=== PATIENT | female | born 1935 | race Caucasian/White ===

== ENCOUNTER 2017-03-20 12:50 | Emergency (ER) | payer MEDICARE ==
[2017-03-20 13:00] VITALS: BP 119/71
[2017-03-20] MEDS ORDERED: Albuterol/Ipratropium NEB.SOL* Albuterol 2.5 MG/Ipratropium 0.5 MG 3 ML INH ONE (13:19)
--- NOTE | 2017-03-20 14:10 | UC ---
Asthma HPI - HPI Summary HPI Summary: 3 DAYS OF INCREASING SHORTNESS OF BREATH. HAS ASTHMA AND WAS TREATED FOR A FLARE ABOUT A MONTH AGO. DOES NOT HAVE OXYGEN AT HOME. ALBUTEROL NOT REALLY HELPING. NO FEVER. HAS PRODUCTUVE COUGH - YELLOW SPUTUM. - History of Current Complaint Chief Complaint: UCRespiratory Stated Complaint: [id number] BREATHING Time Seen by Provider: 03/20/17 13:56 Hx Obtained From: Patient, Family/Practice Consultant - DAUGHTER Onset/Duration: Gradual Onset, Lasting Days, Still Present Timing: Constant Initial Severity: Moderate Current Severity: Moderate Pain Intensity: 0 Pain Scale Used: 0-10 Numeric Location/Character: Cough (Productive) Aggravating: Exertion Alleviating: Rest Associated Signs and Symptoms: Positive: Shortness of Breath. Negative: Chest Pain - Allergy/Home Medications Allergies/Adverse Reactions: Allergies Allergy/AdvReac Type Severity Reaction Status Date / Time Amoxicillin Allergy Unknown Rash And Verified 06/14/13 16:19 Itching Doxycycline Allergy Unknown Rash And Verified 06/14/13 16:19 Itching Sulfa Drugs Allergy Unknown Rash And Verified 06/14/13 16:19 Itching Home Medications: Home Medications Multiple Vitamins W/ Minerals [Multivitamin Adults 50+] 1 tab PO 03/20/17 [ History] PMH/Surg Hx/FS Hx/Imm Hx Endocrine History: Diabetes, Dyslipidemia Cardiovascular History: Hypertension Respiratory History: Asthma Other History Of: Anticoagulant Therapy - Heparin at hospital - Surgical History Surgical History: Yes Surgery Procedure, Year, and Place: Hysterectomy 1965, appendix removed at same time, hernia [id number], sinus surgeries - Family History Known Family History: Positive: Hypertension - Social History Alcohol Use: None Substance Use Type: None Smoking Status (MU): Never Smoked Tobacco - Immunization History Most Recent Influenza Vaccination: 2012 Most Recent Tetanus Shot: 2013 Most Recent Pneumonia Vaccination: 2008 Review of Systems Constitutional: Fatigue Respiratory: Shortness Of Breath, Cough Cardiovascular: Negative Gastrointestinal: Negative All Other Systems Reviewed And Are Negative: Yes Physical Exam Triage Information Reviewed: Yes Appearance: Well-Appearing, No Pain Distress, Well-Nourished Vital Signs: Initial Vital Signs Temp 98.1 F 03/20/17 12:52 Pulse 97 03/20/17 12:52 Resp 18 03/20/17 12:52 BP 119/71 03/20/17 12:52 Pulse Ox 95 03/20/17 12:52 Vital Signs Reviewed: Yes Eyes: Positive: Conjunctiva Clear ENT: Positive: Hearing grossly normal Neck: Positive: Supple, Nontender, No Lymphadenopathy Respiratory: Positive: No respiratory distress, No accessory muscle use, Decreased breath sounds, Crackles - BILATERAL BASES AND RIGHT MID LUNG, Wheezing - OCCASIONAL Cardiovascular: Positive: Pulses Normal Abdomen Description: Positive: Soft Musculoskeletal: Positive: No Edema Neurological: Positive: Alert Psychological: Positive: Normal Response To Family, Age Appropriate Behavior Skin: Negative: rashes Diagnostics - Radiology CXR Xray Interpretation: Positive (See Comments) - UNDERINFLATED LUNGS, BIBASILAR INFILTRATES. Radiology Interpretation Completed By: Radiologist Asthma Course/Dx - Differential Dx/Diagnosis Provider Diagnoses: BIBASILAR PNEUMONIA Discharge - Discharge Plan Condition: Stable Disposition: HOME Prescriptions: Levofloxacin TAB* [Levaquin 500 Tab*] 500 mg PO DAILY #10 tab predniSONE TAB* [Deltasone TAB*] 50 mg PO DAILY #3 tab Patient Education Materials: Pneumonia (ED) Referrals: Taisha Khan MD [Primary Care Provider] - (FOLLOW-UP IN 4-6 WEEKS FOR RE-EVAL AND REPEAT CHEST XRAY) Additional Instructions: BIBASILAR INFILTRATES SEEN ON XRAY TODAY. WILL TREAT WITH ANTIBIOTICS - TAKE FOR THE FULL 10 DAYS. WILL ALSO GIVE 3 DAYS OF PREDNISONE TO HELP WITH AIRWAY INFLAMMATION. THIS WILL CAUSE YOUR SUGAR TO GO UP. PLEASE BE EXTRA VIGILANT OF YOUR DIET OVER THE NEXT WEEK. ALSO BE AWARE THAT LEVOFLOXACIN CAN MAKE YOU MORE SENSITIVE TO THE GLIPIZIDE INCREASING RISK OF LOW SUGAR. SO AGAIN - BE VIGILANT. GO TO THE ER WITHOUT FAIL IF YOUR BREATHING GETS WORSE OR IF YOU DEVELOP SWEATS , NAUSEA, DIZZINESS OR ANY OTHER CONCERNING SYMPTOMS.
--- NOTE | 2017-03-20 14:13 | RAD ---
INDICATION: Wheezing and shortness of breath. COMPARISON: Comparison is made with a prior study from June 16, 2013. TECHNIQUE: Dual-energy PA and lateral views of the chest were obtained. FINDINGS: The heart appears within normal limits in size. The lungs are underinflated. There are is mild prominence of the interstitial markings and small bibasilar infiltrates. No pleural effusion is seen. IMPRESSION: UNDERINFLATED LUNGS, BIBASILAR INFILTRATES.
== END 2017-03-20 14:39 | disposition home or self-care (01) ==
LOC: UCEAST 12:50
DX: J18.9 Pneumonia, unspecified organism (principal); J45.909 Unspecified asthma, uncomplicated
CPT/HCPCS: 71020; 99212; A9270-GY; G0463

== ENCOUNTER → 2018-01-13 08:48 | Day surgery (SDC) | payer MEDICARE, BC ==
[~2018-01-13 08:48] MED LIST: Acetaminophen TAB* 325 MG PO PRN; Buffered Lidocaine 0.9% SYRIN* 5 ML/SYR SYRINGE INTRADERM ONE; Cyclopentolate 1% OPTH.SOL* 2 ML BTL ONE; Ketorolac 0.5% OPHTH (NF) 0.5 % 5 ML BTL ONE; Lidocaine 1% MPF* 2 ML VIAL ONE; Lidocaine 2% EPI 1:200000 MPF*10-20 ML VIAL ONE; Neomycin/Polymy/Dex OPTH.SUSP* MAXITROL 0.1% 5 ML ONE; Phenylephrine 2.5% OPTH.SOL* 2 ML BTL ONE; Povidone Iodine 5% OPTH* 30 ML BTL ONE; Proparacaine 0.5% OPHTH.SOL* 15 ML BTL ONE; acetaZOLAMIDE TAB* 250 MG ONE
[2018-01-13 12:57] VITALS: BP 155/74
== END | disposition home or self-care (01) ==
LOC: OREAST 08:48
PROVIDERS: ATTEND Specialist
DX: H25.11 Age-related nuclear cataract, right eye (principal); R06.02 Shortness of breath; Z53.09 Procedure and treatment not carried out because of other contraindication
CPT/HCPCS: A9270-GY

== ENCOUNTER 2018-01-13 11:48 | Inpatient (IN) | payer MEDICARE, BC ==
[2018-01-13 12:59] LABS: ABS Basophils 0.1 10^3/ul (0-0.2); ABS Eosinophils 0.2 10^3/ul (0-0.6); ABS Lymphocytes 1.9 10^3/ul (1.0-4.8); ABS Neutrophils 8.9 10^3/ul (1.5-7.7); ABS Nucleated RBC 0 10^3/ul; Hematocrit 30 % (35-47); Hemoglobin 9.6 g/dl (12.0-16.0); Mean Corpuscular HGB Conc 32 g/dl (31-36); Mean Corpuscular Hemoglobin 25 pg (27-31); Mean Corpuscular Volume 77 fL (80-97); Mean Platelet Volume 7.1 um3 (7.4-10.4); Nucleated Red Blood Cells % 0; Platelet Count 340 10^3/ul (150-450); Red Blood Count 3.88 10^6/ul (4.0-5.4); Red Cell Distribution Width 18 % (10.5-15); White Blood Count 12.2 10^3/ul (3.5-10.8)
[2018-01-13 13:12] LABS: INR 1.67 (0.77-1.02)
[2018-01-13 13:19] LABS: EGFR Non-African American 55.5 (>60)
--- NOTE | 2018-01-13 13:47 | RAD ---
INDICATION: Low oxygen saturation. COMPARISON: Comparison is made with a prior study from March 20, 2017. TECHNIQUE: Dual-energy PA and lateral views of the chest were obtained. FINDINGS: The heart is within normal limits in size. Mediastinal and hilar contours appear within normal limits. The lungs are underinflated. There are small infiltrates at both lung bases and a trace right pleural effusion. IMPRESSION: SMALL BIBASILAR INFILTRATES AND TRACE RIGHT PLEURAL EFFUSION.
[2018-01-13] MEDS ORDERED: Levofloxacin 750 MG IVPREMIX(* 750 MG/150 ML BAG IVPB ONE (14:29)
[2018-01-13] MEDS ORDERED: Acetaminophen TAB* 325 MG PO PRN (16:32)
[2018-01-13] MEDS ORDERED: Magnesium Hydroxide LIQ* 30 ML UDC PO PRN (16:32)
[2018-01-13] MEDS ORDERED: Albuterol 2.5 MG/3 ML NEB.SOL* (0.083%) INH PRN (16:32)
--- NOTE | 2018-01-13 18:09 | ED ---
Emory Roche Angela, scribed for Jay Real MD on 01/13/18 at 1230 . Shortness of Breath - HPI Summary HPI Summary: This pt is a 82 y/o female presenting to [facility] via EMS c/o SOB. Pt was scheduled to have cataract surgery today and was noted to be saturating in the upper 80s. Pt states the surgical associates dilated her right eye. Per family member, pt battles with pneumonia constantly. Pt was recently on antibiotics for pneumonia and upon discharge her O2 sat was 99%. After finishing antibiotics, pt's saturation was in the 90's, which is the baseline for the pt. Pt is currently saturating at 93% on room air. PMHx includes CHF, chronic lung disease, diabetes, HTN. Pt is currently on metformin and Lasix. She denies hx of COPD. - History of Current Complaint Chief Complaint: EDShortnessOfBreath Time Seen by Provider: 01/13/18 12:15 Hx Obtained From: Patient Onset/Duration: Lasting Days, Still Present Timing: Constant Current Severity: Mild Dyspnea At: Rest Aggrevating Factors: Nothing Alleviating Factors: Nothing Associated Signs & Symptoms: Cough (Nonproductive), Edema - Allergy/Home Medications Allergies/Adverse Reactions: Allergies Allergy/AdvReac Type Severity Reaction Status Date / Time amoxicillin Allergy Rash And Verified 01/13/18 09:04 Itching doxycycline Allergy Rash And Verified 01/13/18 09:04 Itching latex Allergy itch Verified 01/13/18 09:04 Sulfa (Sulfonamide Allergy Rash And Verified 01/13/18 09:04 Antibiotics) Itching Home Medications: Home Medications Albuterol 2.5MG/3ML (0.083%)* [Ventolin 2.5 MG/3 ML NEB.SAMY*] 2.5 mg INH Q8HR [History Confirmed 01/13/18] Calcium Carbonate/Vitamin D3 [Calcium 500 + Vit D Caplet] 1 tab PO BID 01/13/18 [History Confirmed 01/13/18] Levothyroxine TAB* [Synthroid TAB*] 25 mcg PO QAM 01/13/18 [History Confirmed ] Losartan TAB* [Cozaar TAB*] 100 mg PO DAILY 01/13/18 [History Confirmed 01/13/18 ] Magnesium Oxide TAB* [MagOx 400 TAB*] 800 mg PO DAILY 01/13/18 [History Confirmed 01/13/18] Meclizine TAB* [Antivert 12.5 TAB*] 25 mg PO TID PRN 01/13/18 [History Confirmed 01/13/18] Metoprolol Succinate XL TAB* [Toprol XL TAB*] 50 mg PO DAILY 01/13/18 [History Confirmed 01/13/18] Multivitamins/Minerals TAB* [Theragran/minerals TAB*] 1 tab PO DAILY 01/13/18 [ History Confirmed 01/13/18] Torsemide TAB* [Demadex*] 20 mg PO DAILY 01/13/18 [History Confirmed 01/13/18] Vitamin E CAP* 400 unit PO DAILY 01/13/18 [History Confirmed 01/13/18] metFORMIN* [Glucophage 1000 MG TAB *] 1,000 mg PO BID 01/13/18 [History Confirmed 01/13/18] PMH/Surg Hx/FS Hx/Imm Hx Endocrine/Hematology History: Reports: Hx Anticoagulant Therapy - Heparin at hospital, Hx Diabetes - type 2, Hx Anemia - chronic anemia Denies: Hx Blood Disorders, Hx Blood Transfusions, Hx Systemic Lupus Erythematosus, Hx Sickle Cell Disease, Hx Thyroid Disease, Hx Unexplained Bleeding Cardiovascular History: Reports: Hx Hypercholesterolemia, Hx Hypertension - on meds, Hx Syncope - vertigo, Other Cardiovascular Problems/Disorders - a fib, on elaquis Denies: Hx Aneurysm, Hx Angina, Hx Angioplasty, Hx Auto Implanted Cardiovert Defib, Hx Cardiac Arrest, Hx Cardiomegaly, Hx Congenital Heart Disease, Hx Congestive Heart Failure, Hx Coronary Artery Disease, Hx Deep Vein Thrombosis, Hx Embolism, Hx Hypotension, Hx Pacemaker/ICD, Hx Peripheral Vascular Disease, Hx Rheumatic Fever Respiratory History: Reports: Hx Asthma, Hx Pneumonia, Hx Seasonal Allergies, Other Respiratory Problems/Disorders - pneumonia 20 yrs ago, was on vent, hx of pneumonia at other times as well Denies: Hx Chronic Bronchitis, Hx Chronic Obstructive Pulmonary Disease (COPD ), Hx Cystic Fibrosis, Hx Lung Cancer, Hx Pleural Effusion, Hx Pulmonary Edema, Hx Pulmonary Embolism, Hx Sleep Apnea GI History: Reports: Hx Diverticulosis, Hx Gastroesophageal Reflux Disease Denies: Hx Cirrhosis, Hx Crohn's Disease, Hx Gall Bladder Disease, Hx Gastrointestinal Bleed, Hx Obstructive Bowel, Hx Ileostomy, Hx Ulcer, Other GI Disorders History: Reports: Other Problems/Disorders - Hx persistent bladder infections, on meds Denies: Hx Acute Renal Failure, Hx Chronic Renal Failure, Hx Dialysis, Hx Kidney Infection, Hx Kidney Stones Musculoskeletal History: Denies: Hx Arthritis, Hx Back Problems, Hx Bursitis, Hx Fibromyalgia, Hx Gout , Hx Scoliosis, Hx Tendonitis, Other Musculoskeletal History Sensory History: Reports: Hx Cataracts - faby, Hx Contacts or Glasses - glasses, Hx Hearing Aid Denies: Hx Eye Injury, Hx Eye Prosthesis, Hx Glaucoma, Hx Legally Blind, Hx Macular Degeneration, Hx Deafness, Hx Hearing Problem Opthamlomology History: Reports: Hx Cataracts - faby, Hx Contacts or Glasses - glasses Denies: Hx Eye Injury, Hx Eye Prosthesis, Hx Glaucoma, Hx Legally Blind, Hx Macular Degeneration Neurological History: Denies: Other Neuro Impairments/Disorders Psychiatric History: Denies: Hx Anxiety, Hx Attention Deficit Hyperactivity Disorder, Hx Eating Disorder, Hx Depression, Hx Panic Disorder, Hx Post Traumatic Stress Disorder, Hx Inpatient Treatment, Hx Schizophrenia, Hx Bipolar Disorder, Hx Suicide Attempt, Hx of Violent Episodes Against Others, Hx Substance Abuse - Surgical History Surgery Procedure, Year, and Place: Hysterectomy 1965, appendix removed at same time,. hernia [id number],. sinus surgeries, Hx Anesthesia Reactions: No Infectious Disease History: No Infectious Disease History: Denies: Hx Hepatitis, Hx Tuberculosis, Traveled Outside the [place] in Last 30 Days - Family History Known Family History: Positive: Hypertension - Social History Alcohol Use: None Substance Use Type: Reports: None Smoking Status (MU): Never Smoked Tobacco Review of Systems Negative: Fever, Chills Negative: Chest Pain Positive: Shortness Of Breath, Cough - chronic Skin: Negative Neurological: Negative All Other Systems Reviewed And Are Negative: Yes Physical Exam - Summary Physical Exam Summary: Appearance: Well appearing, no pain distress Skin: warm, dry, reflects adequate perfusion Head/face: normal Eyes: EOMI. Right eye is pharmacologically dilated. ENT: normal Neck: supple, non-tender. No JVD. Respiratory: crackles in the right base. Expiratory wheeze with force expiration. Respirations are shallow and a little rampant. Cardiovascular: RRR, pulses symmetrical. No murmur. Abdomen: non-tender, soft Bowel: present Musculoskeletal: normal, strength/ROM intact Neuro: normal, sensory motor intact, A&Ox3 Triage Information Reviewed: Yes Vital Signs On Initial Exam: Initial Vitals Temp Pulse Resp BP Pulse Ox 99.4 F 88 19 161/83 90 01/13/18 12:04 01/13/18 12:04 01/13/18 12:04 01/13/18 12:04 01/13/18 12:04 Vital Signs Reviewed: Yes Diagnostics - Vital Signs Vital Signs Temp Pulse Resp BP Pulse Ox 01/13/18 12:04 99.4 F 88 19 161/83 90 - Laboratory Lab Results: Lab Results 01/13/18 01/13/18 01/13/18 Range/Units 12:48 12:48 12:48 WBC 12.2 H (3.5-10.8) 10^3/ul RBC 3.88 L (4.0-5.4) 10^6/ul Hgb 9.6 L (12.0-16.0) g/dl Hct 30 L (35-47) % MCV 77 L (80-97) fL MCH 25 L (27-31) pg MCHC 32 (31-36) g/dl RDW 18 H (10.5-15) % Plt Count 340 (150-450) 10^3/ul MPV 7.1 L (7.4-10.4) um3 Neut % (Auto) 72.8 (38-83) % Lymph % (Auto) 16.0 L (25-47) % [place] % (Auto) 8.3 H (0-7) % Eos % (Auto) 2.0 (0-6) % Baso % (Auto) 0.9 (0-2) % Absolute Neuts (auto) 8.9 H (1.5-7.7) 10^3/ul Absolute Lymphs (auto) 1.9 (1.0-4.8) 10^3/ul Absolute Monos (auto) 1.0 H (0-0.8) 10^3/ul Absolute Eos (auto) 0.2 (0-0.6) 10^3/ul Absolute Basos (auto) 0.1 (0-0.2) 10^3/ul Absolute Nucleated RBC 0 10^3/ul Nucleated RBC % 0 INR (Anticoag Therapy) 1.67 H (0.77-1.02) ABG pH (7.35-7.45) ABG pCO2 (35-45) mmHg ABG pO2 (80-100) mmHg ABG HCO3 (19-31) mmol/L ABG O2 Saturation (95-98) % ABG Base Excess (-2.0-2.0) Sodium 136 L (139-145) mmol/L Potassium 3.7 (3.5-5.0) mmol/L Chloride 101 (101-111) mmol/L Carbon Dioxide 25 (22-32) mmol/L Anion Gap 10 (2-11) mmol/L BUN 22 (6-24) mg/dL Creatinine 0.96 H (0.51-0.95) mg/dL Est GFR ( Amer) 71.4 (>60) Est GFR (Non-Af Amer) 55.5 (>60) BUN/Creatinine Ratio 22.9 H (8-20) Glucose 113 H (70-100) mg/dL Lactic Acid (0.5-2.0) mmol/L Calcium 9.3 (8.6-10.3) mg/dL Total Bilirubin 0.60 (0.2-1.0) mg/dL AST 9 L (13-39) U/L ALT 10 (7-52) U/L Alkaline Phosphatase 45 (34-104) U/L Troponin I 0.01 (<0.04) ng/mL B-Natriuretic Peptide ( - 100) pg/mL Total Protein 7.3 (6.4-8.9) g/dL Albumin 3.4 (3.2-5.2) g/dL Globulin 3.9 (2-4) g/dL Albumin/Globulin Ratio 0.9 L (1-3) Procalcitonin (<0.6) ng/mL 01/13/18 01/13/18 01/13/18 Range/Units 12:48 12:48 12:48 WBC (3.5-10.8) 10^3/ul RBC (4.0-5.4) 10^6/ul Hgb (12.0-16.0) g/dl Hct (35-47) % MCV (80-97) fL MCH (27-31) pg MCHC (31-36) g/dl RDW (10.5-15) % Plt Count (150-450) 10^3/ul MPV (7.4-10.4) um3 Neut % (Auto) (38-83) % Lymph % (Auto) (25-47) % [place] % (Auto) (0-7) % Eos % (Auto) (0-6) % Baso % (Auto) (0-2) % Absolute Neuts (auto) (1.5-7.7) 10^3/ul Absolute Lymphs (auto) (1.0-4.8) 10^3/ul Absolute Monos (auto) (0-0.8) 10^3/ul Absolute Eos (auto) (0-0.6) 10^3/ul Absolute Basos (auto) (0-0.2) 10^3/ul Absolute Nucleated RBC 10^3/ul Nucleated RBC % INR (Anticoag Therapy) (0.77-1.02) ABG pH (7.35-7.45) ABG pCO2 (35-45) mmHg ABG pO2 (80-100) mmHg ABG HCO3 (19-31) mmol/L ABG O2 Saturation (95-98) % ABG Base Excess (-2.0-2.0) Sodium (139-145) mmol/L Potassium (3.5-5.0) mmol/L Chloride (101-111) mmol/L Carbon Dioxide (22-32) mmol/L Anion Gap (2-11) mmol/L BUN (6-24) mg/dL Creatinine (0.51-0.95) mg/dL Est GFR ( Amer) (>60) Est GFR (Non-Af Amer) (>60) BUN/Creatinine Ratio (8-20) Glucose (70-100) mg/dL Lactic Acid 1.1 (0.5-2.0) mmol/L Calcium (8.6-10.3) mg/dL Total Bilirubin (0.2-1.0) mg/dL AST (13-39) U/L ALT (7-52) U/L Alkaline Phosphatase (34-104) U/L Troponin I (<0.04) ng/mL B-Natriuretic Peptide 280 H ( - 100) pg/mL Total Protein (6.4-8.9) g/dL Albumin (3.2-5.2) g/dL Globulin (2-4) g/dL Albumin/Globulin Ratio (1-3) Procalcitonin 0.1 (<0.6) ng/mL 01/13/18 Range/Units 13:00 WBC (3.5-10.8) 10^3/ul RBC (4.0-5.4) 10^6/ul Hgb (12.0-16.0) g/dl Hct (35-47) % MCV (80-97) fL MCH (27-31) pg MCHC (31-36) g/dl RDW (10.5-15) % Plt Count (150-450) 10^3/ul MPV (7.4-10.4) um3 Neut % (Auto) (38-83) % Lymph % (Auto) (25-47) % [place] % (Auto) (0-7) % Eos % (Auto) (0-6) % Baso % (Auto) (0-2) % Absolute Neuts (auto) (1.5-7.7) 10^3/ul Absolute Lymphs (auto) (1.0-4.8) 10^3/ul Absolute Monos (auto) (0-0.8) 10^3/ul Absolute Eos (auto) (0-0.6) 10^3/ul Absolute Basos (auto) (0-0.2) 10^3/ul Absolute Nucleated RBC 10^3/ul Nucleated RBC % INR (Anticoag Therapy) (0.77-1.02) ABG pH 7.48 H (7.35-7.45) ABG pCO2 32 L (35-45) mmHg ABG pO2 61 L (80-100) mmHg ABG HCO3 25.3 (19-31) mmol/L ABG O2 Saturation 95.2 (95-98) % ABG Base Excess 0.6 (-2.0-2.0) Sodium (139-145) mmol/L Potassium (3.5-5.0) mmol/L Chloride (101-111) mmol/L Carbon Dioxide (22-32) mmol/L Anion Gap (2-11) mmol/L BUN (6-24) mg/dL Creatinine (0.51-0.95) mg/dL Est GFR ( Amer) (>60) Est GFR (Non-Af Amer) (>60) BUN/Creatinine Ratio (8-20) Glucose (70-100) mg/dL Lactic Acid (0.5-2.0) mmol/L Calcium (8.6-10.3) mg/dL Total Bilirubin (0.2-1.0) mg/dL AST (13-39) U/L ALT (7-52) U/L Alkaline Phosphatase (34-104) U/L Troponin I (<0.04) ng/mL B-Natriuretic Peptide ( - 100) pg/mL Total Protein (6.4-8.9) g/dL Albumin (3.2-5.2) g/dL Globulin (2-4) g/dL Albumin/Globulin Ratio (1-3) Procalcitonin (<0.6) ng/mL Result Diagrams: 01/13/18 12:48 01/13/18 12:48 Lab Statement: Any lab studies that have been ordered have been reviewed, and results considered in the medical decision making process. - Radiology Chest XR Xray Interpretation: Positive (See Comments) - IMPRESSION: Small bibasilar infiltrates and trace right pleural effusion. Dr. Real has reviewed this radiology report. Radiology Interpretation Completed By: Radiologist - EKG 12:19 Cardiac Rate: NL - at 78 bpm EKG Rhythm: Sinus Rhythm ST Segment: Normal EKG Interpretation: Normal axis. Normal intervals. Re-Evaluation - Re-Evaluation First Eval Re-Evaluation Time: 14:00 Comment: I reviewed the lab and XR results with the pt. Second Eval Re-Evaluation Time: 14:28 Comment: I discussed the plan to admit with the pt and family. Course/Dx - Course Course Of Treatment: Patient was set to be cleared for surgery today was found to be hypoxic in the preop setting. She had chronic cough and has been treated with several rounds of antibiotics. Today she has no fever and has slight elevation of white blood cell count. There is evidence of possible basilar infiltrate. We have discussed placing her on home oxygen in discharging which is the patient's request. However, social work states this necessitates further testing that would require admission. Her primary care physician was also contacted and would like the patient to be admitted to further workup this hypoxia. Hospitalist was contacted and evaluated the patient the ER for admission. - Diagnoses Differential Diagnosis/HQI/PQRI: Positive: CHF, COPD Exacerbation, Pneumonia, Pneumothorax, Pulmonary Edema Provider Diagnoses: Chronic anemia, Pleural effusion, Bilateral pneumonia, Hypoxia - Physician Notifications Discussed Care of Patient With: Jalen Noriega Time Discussed With Above Provider: 14:30 Instructed by Provider To: Other - I discussed pt care with Dr. Noriega, hospitalist, who has agreed to admit the pt. Discharge - Sign-Out/Discharge Documenting (check all that apply): Discharge/Admit/Transfer - [place] [facility] [place] Plan Condition: Fair Disposition: ADMITTED TO [facility] - Billing Disposition and Condition Condition: FAIR [place] [place] The documentation as recorded by the Emory aaron Angela accurately reflects the service I personally performed and the decisions made by , Jay Real MD.
[2018-01-13] MEDS: CMCS: Solifenacin(NF) 5 MG TAB PO SCH (19:13)
[2018-01-13] MEDS: Azithromycin IV(*) 500 MG in NS 0.9% 250 ML* 250 ML IVPB SCH (19:13)
[2018-01-13] MEDS: Mometasone/Formoter 200/5 MDI INH SCH (20:56)
[2018-01-13] MEDS: Apixaban* 5 MG TAB PO SCH (21:31)
[2018-01-13] MEDS: Atorvastatin* 10 MG TAB PO SCH (21:31)
[2018-01-13] MEDS: glipiZIDE TAB.XL* 2.5 MG PO SCH (21:31)
[2018-01-13] MEDS: cefTRIAXone(*) 1 GM in NS 0.9% 50 ML* 50 ML IVPB SCH (21:47)
--- NOTE | 2018-01-13 23:29 | HP ---
CC: Dr. Taisha Khan * HISTORY AND PHYSICAL: DATE OF ADMISSION: 01/13/18 PROVIDER: Darya Moe NP PRIMARY CARE PROVIDER: Dr. Taisha Khan. ATTENDING PHYSICIAN WHILE IN THE HOSPITAL: Dr. Jalen Noriega * (dictated by Darya Moe NP). CHIEF COMPLAINT: 1. Shortness of breath. 2. Low O2 saturation. HISTORY OF PRESENT ILLNESS: Ms. Najera is an 82-year-old female, who carries a past medical history for diabetes, hypertension, asthma, GERD, recurrent pneumonia, and atrial fibrillation. The patient presented for outpatient cataract surgery today and during the preoperative period, she was noted to have O2 saturations at 80%. Given this finding, her cataract surgery was canceled and she was sent to the emergency room for further evaluation of her hypoxia. The patient denies any recent sick contacts. Denies any nausea or vomiting. Denies any fever or chills. She reports that her shortness of breath feels at baseline as she reports that she is chronically short of breath. She reports that when she gets short of breath, she sits down at home until it subsides and has been this way for years. She also reports that she was most recently diagnosed with pneumonia 3 weeks ago and was started on Levaquin. She took Levaquin 500 mg for 10 days and completed that treatment approximately 2 weeks ago. She denies any other symptoms. She denies any chest pain. She denies any abdominal pain or dysuria. She denies any loss of consciousness. No fevers. No weakness. Due to her hypoxia, we were asked by the emergency room physicians to evaluate her for admission to the hospital. While in the emergency room, she had routine lab work drawn. Her white count was 12.2. She did have an ABG in the emergency room; pH was 7.48, PCO2 was 32, PO2 was 61, O2 saturation was 95%. She did have a chest x-ray completed in the emergency room, which showed small bibasilar infiltrates and a trace right pleural effusion. Given these findings, we were asked to evaluate her for admission. PAST MEDICAL HISTORY: Significant for: 1. Diabetes. 2. Hypertension. 3. Asthma. 4. GERD. 5. Recurrent pneumonia with recent treatment approximately 3 weeks ago. 6. Hysterectomy. 7. Atrial fibrillation. PAST SURGICAL HISTORY: 1. Hysterectomy. 2. Appendectomy. 3. Hernia repair. HOME MEDICATIONS: Include: 1. Albuterol nebulizer every 8 hours as needed for shortness of breath. 2. Eliquis 1 tablet 5 mg p.o. b.i.d. 3. Atorvastatin 10 mg p.o. daily. 4. Calcium 500 plus D one tablet twice daily. 5. Zyrtec 10 mg p.o. daily. 6. Cranberry p.o. 1 tablet twice daily. 7. Multivitamin 1 tablet p.o. daily. 8. Flonase 2 sprays in nose daily. 9. Advair Diskus 500/50 one inhalation twice daily. 10. Glipizide 2.5 mg 1 tablet twice daily. 11. Levothyroxine 25 mcg 1 tablet daily. 12. Losartan 100 mg 1 tablet p.o. daily. 13. Magnesium oxide 400 one tablet p.o. daily. 14. Meclizine 25 mg 1 tablet 3 times a day as needed for dizziness or vertigo. 15. Metformin 1000 mg 1 tablet twice daily. 16. Toprol 50 mg 1 tablet p.o. daily. 17. Vitamin E one tablet daily. 18. [place]-3 one tablet twice daily. 19. VESIcare 10 mg 1 tablet p.o. daily. 20. Torsemide 20 mg 1 tablet p.o. daily. 21. Accolate 20 mg take 1 tablet twice daily. ALLERGIES TO MEDICINE: She is allergic to AMOXICILLIN, CODEINE, DOXYCYCLINE, LATEX, and SULFA. FAMILY HISTORY: Mother had a history of angina. Brother with history of [place]. No reported diabetes or cancer. Mother with uterine cancer. SOCIAL HISTORY: The patient denies any tobacco, alcohol, or illicit drug use. She is and lives with her . Surrogate decision maker in the event she is unable to make her own decisions is her , Vince Najera. His phone number is [phone]. The patient wishes to be a do not resuscitate. REVIEW OF SYSTEMS: There was no documented fever. There has been no significant weight change. There was no double vision. There has been no rhinorrhea. There has been no discharge. No sore throat. She denies any chest pain. She denies any nocturnal dyspnea or orthopnea. The patient denies any abdominal pain. Denies any nausea or vomiting. No urinary frequency or urgency. She denies any seizures. Denies loss of consciousness. Denies any pruritus or skin ulcerations. She denies any dysphagia. She does report a chronic cough that is productive of white sputum. She does also report that she is chronically short of breath and that when she becomes short of breath, she sits down until the shortness of breath subsides and then she resumes her activities. She reports that this has been chronic for her for many years. PHYSICAL EXAMINATION GENERAL: At this time, Ms. Najera is an 82-year-old female. She appears in no acute distress, resting on the stretcher in the emergency room. VITAL SIGNS: Are as follows: Blood pressure 124/83, heart rate is 82, respirations are 20, O2 saturation is between 90% to 92% on 2 L. HEENT: Head is atraumatic, normocephalic. Eyes: EOMs are intact. Sclerae anicteric and not pale. Oral mucosa appears to be dry. NECK: Supple. LUNGS: With scattered rhonchi throughout bilaterally. There are some expiratory wheezes. There are no rales. CARDIAC: S1, S2. Regular rate and rhythm. There are no murmurs, rubs, or gallops appreciated. ABDOMEN: Soft, flat, and nontender. Bowel sounds are active x4. EXTREMITIES: Pulses are +2 throughout. She is able to move all 4 extremities with 5/5 strength. NEUROLOGIC: She is alert and oriented x3. Speech is clear. There are no focal deficits. SKIN: Intact. DIAGNOSTIC STUDIES/LAB DATA: WBCs were 12.2, hemoglobin 9.6, hematocrit was 30 , platelet count was 340. INR was 1.67. ABG: pH was 7.48, PCO2 was 32, PO2 was 61, HCO3 was 25, O2 saturation was 95%. Sodium was 136, potassium 3.7, chloride 101, carbon dioxide was 25, anion gap was 10, BUN was 22, creatinine 0.96, glucose was 113, lactic acid was 1.1, calcium 9.3. ASTs were 9, ALTs were 10. Troponin was 0.01. BNP was 280. Procalcitonin was 0.1. Chest x-ray, radiologist's impression: Small bibasilar infiltrates and trace right pleural effusion. Electrocardiogram shows sinus rhythm at a rate of 88. ASSESSMENT AND PLAN: Ms. Najera is an 82-year-old female patient that presented to the emergency room today after in the preoperative period for her cataract surgery was found to be hypoxic with O2 saturations in the mid 80s. The patient was sent here for further evaluation. She will be admitted under observation for: 1. Shortness of breath. I suspect this could be related to pneumonia. She was recently treated for pneumonia approximately 3 weeks ago with a 10-day course of Levaquin 500 mg. Her chest x-ray during this admission shows bibasilar infiltrates. I suspect that her pneumonia could be unresolved. I will place her on ceftriaxone 1 g q.24 hours and azithromycin 500 mg daily. We will get a walking O2 saturation on her as well. 2. Asthma. I suspect that her asthma could also be underlying, contributing to her shortness of breath. We will continue her on her home inhalers, albuterol and Advair Diskus. We will also continue her on Zyrtec. 3. Atrial fibrillation. We will continue her on her Eliquis, Toprol 50 as well. 4. Hypertension. We will continue her on losartan as well as the metoprolol. 5. Hyperlipidemia. We will continue her on atorvastatin 10 mg daily. 6. Diabetes. We will continue her on metformin 1000 mg p.o. twice daily and glipizide 2.5 mg 1 tablet twice daily. 7. Elevated BNP. She did have an elevated BNP at the level of 280. We will continue her on her torsemide during her hospitalization at 20 mg p.o. daily. 8. FEN. She will placed on a heart-healthy diet, decaf okay. 9. Code status. She is a DNR. 10. DVT prophylaxis. We will continue her on her Eliquis. 11. Disposition. She will be placed inpatient. TIME SPENT: On this admission was approximately 60 minutes, greater than half that time was spent [id number] with the patient obtaining history and physical , the other half the time was spent going over the plan of care and implementing that plan of care. I have discussed this with my attending, Dr. Jalen Noriega, and he is in agreement with my plan. DARYA MOE, LINK KNITTING MACHINE OPERATOR [id number]/[facility] #: [id number] [place]
[2018-01-14] MEDS ORDERED: Benzonatate CAP* 100 MG PO PRN (03:02)
[2018-01-14] MEDS: Levothyroxine TAB* 25 MCG TAB PO SCH (05:58)
[2018-01-14 06:13] LABS: ABS Basophils 0.1 10^3/ul (0-0.2); ABS Eosinophils 0.4 10^3/ul (0-0.6); ABS Lymphocytes 1.8 10^3/ul (1.0-4.8); ABS Nucleated RBC 0 10^3/ul; Eosinophil % 3.9 % (0-6); Hematocrit 28 % (35-47); Hemoglobin 9.1 g/dl (12.0-16.0); Lymphocyte % 19.6 % (25-47); Mean Corpuscular HGB Conc 33 g/dl (31-36); Mean Corpuscular Hemoglobin 25 pg (27-31); Mean Corpuscular Volume 77 fL (80-97); Mean Platelet Volume 7.4 um3 (7.4-10.4); Nucleated Red Blood Cells % 0; Platelet Count 304 10^3/ul (150-450); Red Blood Count 3.59 10^6/ul (4.0-5.4); Red Cell Distribution Width 18 % (10.5-15); White Blood Count 9.3 10^3/ul (3.5-10.8)
[2018-01-14 06:33] LABS: EGFR Non-African American 57.6 (>60)
[2018-01-14] MEDS: Magnesium Oxide TAB* 400 MG PO SCH (07:27)
[2018-01-14] MEDS: Apixaban* 5 MG TAB PO SCH ×2 (07:27→21:30)
[2018-01-14] MEDS: Multivitamins/Minerals TAB PO SCH (07:28)
[2018-01-14] MEDS: Atorvastatin* 10 MG TAB PO SCH (07:28)
[2018-01-14] MEDS: Vitamin E CAP* 400 UNIT PO SCH (07:28)
[2018-01-14] MEDS: glipiZIDE TAB.XL* 2.5 MG PO SCH (07:29)
[2018-01-14] MEDS: Cetirizine* 10 MG TAB PO SCH (07:29)
[2018-01-14] MEDS: Fluticasone NASAL SPRAY 50MCG* 16 gm SPRAY BTL BOTH NARES SCH (07:29)
[2018-01-14] MEDS: Mometasone/Formoter 200/5 MDI INH SCH ×2 (07:32→20:05)
[2018-01-14] MEDS ORDERED: metFORMIN* 1,000 MG TAB PO SCH (08:00)
[2018-01-14] MEDS ORDERED: Dextrose 50% Syringe 50 ML* 25 GM/50 ML SYRINGE IV PUSH PRN (08:20)
[2018-01-14] MEDS ORDERED: Metoprolol Succinate XL TAB* 50 MG PO SCH ×2 (09:00→19:16)
[2018-01-14] MEDS ORDERED: Losartan TAB* 25 MG PO SCH (09:00)
[2018-01-14] MEDS ORDERED: Torsemide TAB* 20 MG PO SCH (09:00)
[2018-01-14] MEDS: Insulin LISPRO* 1 UNITS UNIT SUBCUT SCH ×2 (12:26→16:58)
[2018-01-14] MEDS ORDERED: Iodixanol* (CONTRAST) 320 MG/ML 100 ML SDV IV ONE (13:24)
--- NOTE | 2018-01-14 15:34 | RAD ---
HISTORY: Shortness of breath, rule out PE COMPARISONS: June 14, 2013 TECHNIQUE: Multiple contiguous axial CT scans of the chest were obtained after the administration of nonionic intravenous contrast, timed to the pulmonary arterial phase of contrast enhancement.. Coronal and sagittal multiplanar reformations are also submitted for review. FINDINGS: NECK AND THYROID: The lower neck and thyroid are unremarkable. CHEST WALL: There is no lower cervical, axillary, or supraclavicular lymphadenopathy by size criteria. HEART AND PERICARDIUM: Coronary and valvular cardiac calcifications are noted. AORTA AND PULMONARY VASCULATURE: There is no pulmonary arterial filling defect to suggest pulmonary embolism. There is no linear filling defect within the aorta to suggest aortic dissection. There is atherosclerosis of the thoracic aorta. MEDIASTINUM: There are multiple mediastinal lymph nodes in the prevascular, paratracheal, AP window, and subcarinal space, measuring up to 1 cm short axis. JOSE ELIAS: There are right hilar lymph nodes measuring up to 0.8 cm in short axis. AIRWAY AND ESOPHAGUS: The airway is unremarkable, without endobronchial filling defect. The esophagus is grossly normal. LUNG PARENCHYMA: There are subsegmental consolidative changes of the right lower lung. PLEURA: Pleural calcifications are noted. UPPER ABDOMEN: The upper abdomen is unremarkable. BONES AND SOFT TISSUES: Degenerative changes are noted. OTHER: None. IMPRESSION: 1. NO PULMONARY ARTERIAL FILLING DEFECT TO SUGGEST PULMONARY EMBOLISM. 2. MILD CONSOLIDATIVE CHANGES OF THE RIGHT LOWER LOBE. 3. PROMINENT RIGHT HILAR LYMPH NODES WITH BORDERLINE ENLARGED MEDIASTINAL LYMPH NODES. 4. ATHEROSCLEROSIS.
[2018-01-14] MEDS: CMCS: Solifenacin(NF) 5 MG TAB PO SCH (18:54)
[2018-01-14] MEDS: Azithromycin IV(*) 500 MG in NS 0.9% 250 ML* 250 ML IVPB SCH (18:54)
--- NOTE | 2018-01-14 19:11 | PN ---
Subjective Date of Service: 01/14/18 Interval History: Ms. Najera reports that she is feeling better today though she continues to have a cough which is now blood-tinged. She denies SOB, chest pain, nausea, or abdominal pain. Objective Active Medications: Acetaminophen (Tylenol Tab*) 650 mg PO Q4H PRN Albuterol (Ventolin 2.5 Mg/3 Ml Neb.Belia*) 2.5 mg INH [id number] AWAKE PRN Apixaban (Eliquis*) 5 mg PO BID KATARINA Atorvastatin Calcium (Lipitor*) 10 mg PO DAILY KATARINA Benzonatate (Tessalon Cap*) 100 mg PO BID PRN Cetirizine HCl (Zyrtec*) 10 mg PO DAILY KATARINA Dextrose (D50w Syringe 50 Ml*) 12.5 gm IV PUSH .FOR FS < 60 - SS PRN Fluticasone Propionate (Flonase Nasal [place] 50mcg*) 2 spray BOTH NARES DAILY KATARINA Azithromycin 500 mg/ Sodium (Chloride) 250 mls @ 250 mls/hr IVPB Q24H KATARINA Ceftriaxone Sodium 1 gm/ (Sodium Chloride) 50 mls @ 200 mls/hr IVPB Q24H KATARINA Insulin Human Lispro (Humalog*) 0 units SUBCUT AC KATARINA Levothyroxine Sodium (Synthroid Tab*) 25 mcg PO DAILY@0600 KATARINA Losartan Potassium (Cozaar Tab*) 100 mg PO DAILY KATARINA Magnesium Hydroxide (Milk Of [place] Liq*) 30 ml PO Q4H PRN Magnesium Oxide (Magox 400 Tab*) 800 mg PO DAILY [facility] Metoprolol Succinate (Toprol Xl Tab*) 50 mg PO DAILY [facility] Mometasone Furoate/Formoterol Fumar (Dulera 200/5 Mdi*) 2 puff INH BID KATARINA Multivitamins/Minerals (Theragran/Minerals Tab*) 1 tab PO DAILY KATARINA Solifenacin (Vesicare(Nf)) 10 mg PO QPM KATARINA Torsemide (Demadex*) 20 mg PO DAILY KATARINA Vitamin E (Vitamin E Cap*) 400 unit PO DAILY KATARINA Vital Signs: Temp Pulse Resp BP Pulse Ox 97.4 F 80 16 95/55 97 01/14/18 14:01 01/14/18 14:01 01/14/18 14:01 01/14/18 14:01 01/14/18 14:01 Oxygen Devices in Use Now: Nasal Cannula Appearance: Female sitting up in chair in NAD Eyes: No Scleral Icterus Ears/Nose/Mouth/Throat: Mucous Membranes Moist Neck: Trachea Midline Respiratory: Symmetrical Chest Expansion and Respiratory Effort, - - Crackles in left base Cardiovascular: NL Sounds; No Murmurs; No JVD, No Edema Abdominal: NL Sounds; No Tenderness; No Distention Lymphatic: No Cervical Adenopathy Extremities: No Edema Skin: No Rash or Ulcers Neurological: Alert and Oriented x 3, NL Muscle Strength and Tone Nutrition: Taking PO's Result Diagrams: 01/14/18 05:21 01/14/18 05:21 Additional Lab and Data: . Microbiology and Other Data: . Assess/Plan/Problems-Billing Assessment: Ms. Najera is an 82 yo female who was recently treated outpatient for pneumonia first with ceftin and then with levaquin when she did not improve. She reports that she did get better after she completed the levaquin as her cough did resolve. Yesterday, she came to the hospital for pre-op eval for cataract surgery and was surprisingly found to be hypoxic with SpO2 80%. She reports at that point she was asymptomatic but overnight and today she has again developed a cough which is blood-tinged. She also reports some transient pain in her right back which has resolved. She denies any recent travel or pain /swelling in her calves. - Patient Problems (1) Pneumonia Comment: - Now with cough and blood tinged sputum - CTA chest negative for PE but shows small infiltrate in R LL. - Continue ceftriaxone/azithromycin. - Question if blood tinged sputum related to apixaban and having cough for several weeks. (2) Diabetes Comment: - BGs well controlled. - Continue lispro SSI coverage with meals. (3) Hypertension Comment: - SBP into 90s this afternoon. - Hold losartan and torsemide, continue metoprolol with hold parameters. (4) Asthma Comment: - No evidence of exacerbation. (5) Afib Comment: - Continue apixiban. (6) Hypothyroidism Comment: - Continue levothyroxine. (7) DVT prophylaxis Comment: - Continue apixiban. (8) DNR (do not resuscitate) Comment: Status and Disposition: Inpatient. Anticipate discharge to home when medically stable.
[2018-01-14] MEDS: cefTRIAXone(*) 1 GM in NS 0.9% 50 ML* 50 ML IVPB SCH (20:28)
[2018-01-15] MEDS: Levothyroxine TAB* 25 MCG TAB PO SCH (06:18)
[2018-01-15] MEDS: Mometasone/Formoter 200/5 MDI INH SCH (08:32)
[2018-01-15] MEDS: Apixaban* 5 MG TAB PO SCH (09:03)
[2018-01-15] MEDS: Atorvastatin* 10 MG TAB PO SCH (09:04)
[2018-01-15] MEDS: Fluticasone NASAL SPRAY 50MCG* 16 gm SPRAY BTL BOTH NARES SCH (09:05)
[2018-01-15] MEDS: Multivitamins/Minerals TAB PO SCH (09:05)
[2018-01-15] MEDS: Magnesium Oxide TAB* 400 MG PO SCH (09:05)
[2018-01-15] MEDS: Insulin LISPRO* 1 UNITS UNIT SUBCUT SCH ×2 (09:05→12:15)
[2018-01-15] MEDS: Cetirizine* 10 MG TAB PO SCH (09:05)
[2018-01-15] MEDS: Vitamin E CAP* 400 UNIT PO SCH (09:05)
[2018-01-15 11:31] VITALS: BP 130/57
--- NOTE | 2018-01-16 11:08 | DS ---
Cc: Dr. Khan DISCHARGE SUMMARY: DATE OF ADMISSION: 01/13/18 DATE OF DISCHARGE: 01/15/18 PRIMARY CARE PROVIDER: Dr. Khan. DISCHARGE DIAGNOSIS: Acute hypoxemic respiratory failure due to community- acquired pneumonia. SECONDARY DIAGNOSES: 1. History of chronic atrial fibrillation. 2. History of hypertension. 3. Diabetes type 2. 4. Asthma. 5. Hysterectomy. MEDICATIONS AT DISCHARGE: Include; 1. Ceftin ER 300 mg p.o. b.i.d. for a total of 5 days and stop. 2. Azithromycin 250 mg p.o. for a total of 3 days and stop. The patient also has qualified for oxygen with oxygen saturations of 87% while ambulating obtained on the day prior to discharge, and she is requested to continue on oxygen at 2 L. The remaining medications are unchanged and include, 1. Albuterol inhaler on a p.r.n. basis. 2. Apixaban 5 mg b.i.d. 3. Lipitor 10 mg daily. 4. Calcium carbonate with multivitamin 1 tablet b.i.d. 5. Zyrtec 10 mg daily. 6. Cranberry 1 capsule daily. 7. Fluticasone nasal spray 2 sprays both nostrils daily. 8. Advair 500/50 one puff inhalation b.i.d. 9. Glipizide 2.5 mg b.i.d. 10. Synthroid 25 mcg daily. 11. Cozaar 100 mg daily. 12. Mag-Ox 800 mg daily. 13. Meclizine 25 mg 3 times a day p.r.n. 14. Metformin 1000 mg b.i.d. 15. Metoprolol succinate 50 mg daily. 16. Multivitamin 1 tablet daily. 17. [place]-3 fatty acid one capsule b.i.d. 18. Ditropan 5 mg 3 times a day. 19. VESIcare 10 mg daily. 20. Demadex 20 mg daily. 21. Vitamin E 400 units daily. 22. Accolate 20 mg b.i.d. LABORATORY DATA AND STUDIES PERFORMED DURING THE HOSPITAL STAY: On 01/13/18; sodium of 132, potassium 2.8, chloride 106, carbon dioxide 24, BUN 19, creatinine 0.93. Procalcitonin was 0.1. On 01/14/18; white blood cell count was 9.3, hemoglobin was 9.1, hematocrit 28, MCV of 77, platelets of 304. Please note that the patient has history of anemia with a hemoglobin at baseline of 9 dating back to 2012. CT angiogram of the chest obtained on 01/14/18; impression: "No pulmonary arterial filling defect to suggest pulmonary embolism. Mild consolidative changes in the right lower lobe. Prominent right hilar lymph nodes with borderline enlargement of mediastinal lymph nodes. Atherosclerosis." HOSPITALIZATION COURSE: Cheyanne Najera is an 82-year-old female who was supposed to undergo a cataract surgery, but was noted be hypoxemic on 01/13/18 and came in to the hospital for evaluation. She was noted to have leukocytosis and right lung infiltrate. Her CT angiogram was negative for PE. The patient stated that she has had history of shortness of breath and dyspnea with exertion in the past. She did very well on ceftriaxone and azithromycin during her hospital stay. She still has occasional cough but her leukocytosis improved. With the procalcitonin being negative, it is possible that it is a viral pneumonia. Nevertheless, she is going to be continued on antibiotics at discharge. Her hypoxemia markedly improved on the day of discharge, but the day prior to discharge, she qualified for oxygen, and she preferred to be prescribed oxygen at discharge due to the hypoxemia noted in the past. PHYSICAL EXAMINATION: At the time of discharge; blood pressure 130/57, heart rate of 66 and regular, respiratory rate 27, oxygen saturation 98% on 2 L oxygen nasal cannula, temperature 97.9. General: The patient is a very pleasant 82-year- old female who is in no acute distress, alert, awake and oriented x3. HEENT: Head atraumatic, normocephalic. Eyes: Pupils are equal and reactive to light and accommodation. Oropharynx clear. Mucosa moist. Neck : Supple. No JVD. No bruits bilaterally. Cardiovascular: Regular rate and rhythm. No murmur. Respiratory: Coarse rhonchi in bilateral lower lungs, otherwise clear. Abdomen: Soft, nontender. Bowel sounds present in all 4 quadrants. Extremities: There is no edema. Pulses are +2 bilaterally. There is no clubbing or cyanosis. On neuro evaluation, speech clear. Cranial nerves II through XII grossly intact. Motor strength is 5/5 bilaterally. DISCHARGE INSTRUCTIONS: The patient was advised to follow up with Dr. Khan in approximately 4 to 7 days after the hospital stay. Activity as tolerated. She uses brace on the right knee for stabilization and walker. Please note that this is a short summary of the patient's hospitalization. Please refer to further medical records for details. TIME SPENT: Approximately 40 minutes were spent on the patient's discharge. [id number]/[facility] #: [id number] MTDD
== END 2018-01-15 16:30 | disposition home or self-care (01) | DRG 193 ==
LOC: ED 11:48 → MED 16:32
PROVIDERS: ADMIT Internal Medicine; ATTEND Internal Medicine
DX: J12.9 Viral pneumonia, unspecified (principal); J96.01 Acute respiratory failure with hypoxia; J90 Pleural effusion, not elsewhere classified; I48.2 Chronic atrial fibrillation; E11.9 Type 2 diabetes mellitus without complications; R59.0 Localized enlarged lymph nodes; I25.10 Atherosclerotic heart disease of native coronary artery without angina pectoris; J45.909 Unspecified asthma, uncomplicated; E78.5 Hyperlipidemia, unspecified; I11.0 Hypertensive heart disease with heart failure; E03.9 Hypothyroidism, unspecified; I50.9 Heart failure, unspecified; J98.4 Other disorders of lung; K21.9 Gastro-esophageal reflux disease without esophagitis; Z90.710 Acquired absence of both cervix and uterus; Z99.81 Dependence on supplemental oxygen; Z79.01 Long term (current) use of anticoagulants; Z79.84 Long term (current) use of oral hypoglycemic drugs; Z79.51 Long term (current) use of inhaled steroids; Z87.01 Personal history of pneumonia (recurrent); Z90.89 Acquired absence of other organs; Z88.5 Allergy status to narcotic agent; Z88.2 Allergy status to sulfonamides; Z91.040 Latex allergy status; Z88.1 Allergy status to other antibiotic agents; Z82.49 Family history of ischemic heart disease and other diseases of the circulatory system; Z80.8 Family history of malignant neoplasm of other organs or systems; Z98.42 Cataract extraction status, left eye; Z98.41 Cataract extraction status, right eye; Z97.4 Presence of external hearing-aid
CPT/HCPCS: 36415; 71046; 71275; 80048; 80053; 82803; 83605; 83880; 84145; 84484; 85025; 85610; 87040; 87070; 87205; 87899; 93005; 94640; 99284; A9270-GY; J0456; J0696; Q9967

== ENCOUNTER 2018-03-24 09:43 | Day surgery (SDC) | payer MEDICARE, BC ==
[~2018-03-24 09:43] MED LIST changes: -Acetaminophen TAB* 325 MG PO PRN; -Cyclopentolate 1% OPTH.SOL* 2 ML BTL ONE; -Ketorolac 0.5% OPHTH (NF) 0.5 % 5 ML BTL ONE; -Lidocaine 1% MPF* 2 ML VIAL ONE; -Lidocaine 2% EPI 1:200000 MPF*10-20 ML VIAL ONE; -Neomycin/Polymy/Dex OPTH.SUSP* MAXITROL 0.1% 5 ML ONE; -Phenylephrine 2.5% OPTH.SOL* 2 ML BTL ONE; -Povidone Iodine 5% OPTH* 30 ML BTL ONE; -Proparacaine 0.5% OPHTH.SOL* 15 ML BTL ONE; -acetaZOLAMIDE TAB* 250 MG ONE
[2018-03-24] MEDS ORDERED: Midazolam* 1 MG/ML 2 ML VIAL (2 MG) ONE (12:05)
[2018-03-24 12:37] VITALS: BP 150/82
[2018-03-24] MEDS ORDERED: Lidocaine 2% EPI 1:200000 MPF*10-20 ML VIAL ONE (15:01)
[2018-03-24] MEDS ORDERED: Povidone Iodine 5% OPTH* 30 ML BTL ONE (15:01)
[2018-03-24] MEDS ORDERED: Lidocaine 1%* 5 ML VIAL ONE (15:01)
[2018-03-24] MEDS ORDERED: Neomycin/Polymy/Dex OPTH.SUSP* MAXITROL 0.1% 5 ML ONE (15:01)
[2018-03-24] MEDS ORDERED: Phenylephrine 2.5% OPTH.SOL* 2 ML BTL ONE (15:01)
[2018-03-24] MEDS ORDERED: Cyclopentolate 1% OPTH.SOL* 2 ML BTL ONE (15:01)
[2018-03-24] MEDS ORDERED: Ketorolac 0.5% OPHTH (NF) 0.5 % 5 ML BTL ONE (15:01)
[2018-03-24] MEDS ORDERED: Proparacaine 0.5% OPHTH.SOL* 15 ML BTL ONE (15:02)
--- NOTE | 2018-03-25 01:20 | OP ---
DATE OF OPERATION: 03/24/18 [facility] DATE OF : 33 SURGEON: Frandy Pack M.D. PREOPERATIVE DIAGNOSIS: Cataract, right eye. POSTOPERATIVE DIAGNOSIS: Cataract right eye. OPERATIVE PROCEDURE: Extracapsular cataract extraction with intraocular lens implant and CTR right eye. DESCRIPTION OF PROCEDURE: The patient was brought to the operating room after being given 1/2% Alcaine with epinephrine drops in the preoperative area. The eye was prepped and draped in the usual sterile fashion. Sterile drape and eyelid speculum were placed. Again, topical 1/2% Alcaine with epinephrine was given. A paracentesis incision was made at the 9 o'clock position with the No.75 blade. Clear cornea incision 2.2 x 2.2-mm was created at the 12 o'clock position starting at the anterior limbus using the 2.2-mm keratome. The anterior chamber was irrigated with 0.4 mL of 1% non-preservative intracameral lidocaine and filled with DisCoVisc. A capsulorrhexis was completed using the cystotome and the Utrata forceps. Hydrodissection was performed with balanced salt solution. The lens nucleus was removed with the Phacoemulsification handpiece without incident. Cortex was removed with the irrigation-aspiration handpiece. The capsular bag was re-inflated using DisCoVisc and an [id number] implant was inserted with the shooter followed by a CTR 10 inserted with the shooter. The irrigation-aspiration handpiece was used to remove all residual DisCoVisc. The eye was refilled with balanced salt solution and the wound checked and found to be watertight. Topical Maxitrol drops were given. Indication for complex cataract surgery, pseudoexfoliation requiring capsular tension ring. [id number]/[facility] #: [id number] MTDD
== END 2018-03-24 12:42 | disposition home or self-care (01) ==
LOC: OREAST 09:43
PROVIDERS: ATTEND Specialist
DX: H25.811 Combined forms of age-related cataract, right eye (principal); H40.1434 Capsular glaucoma with pseudoexfoliation of lens, bilateral, indeterminate stage; E11.3293 Type 2 diabetes mellitus with mild nonproliferative diabetic retinopathy without macular edema, bilateral; Z79.84 Long term (current) use of oral hypoglycemic drugs; Z79.01 Long term (current) use of anticoagulants; I48.0 Paroxysmal atrial fibrillation; E03.9 Hypothyroidism, unspecified; I10 Essential (primary) hypertension; J45.909 Unspecified asthma, uncomplicated; R42 Dizziness and giddiness; Z68.32 Body mass index [BMI] 32.0-32.9, adult; M19.90 Unspecified osteoarthritis, unspecified site
CPT/HCPCS: A9270-GY; J2250; V2632

== ENCOUNTER 2018-03-31 07:56 | Day surgery (SDC) | payer MEDICARE, BC ==
[~2018-03-31 07:56] MED LIST changes: +Acetaminophen TAB* 325 MG PO PRN
[2018-03-31] MEDS ORDERED: Midazolam* 1 MG/ML 5 ML VIAL (5 MG) ONE (08:33)
[2018-03-31] MEDS ORDERED: fentaNYL* 50 MCG/ML 2 ML VIAL (100 MCG VIAL) ONE (08:33)
[2018-03-31] MEDS ORDERED: Lidocaine 1%* 5 ML VIAL ONE (10:11)
[2018-03-31] MEDS ORDERED: acetaZOLAMIDE TAB* 250 MG ONE (10:11)
[2018-03-31] MEDS ORDERED: Povidone Iodine 5% OPTH* 30 ML BTL ONE (10:11)
[2018-03-31] MEDS ORDERED: Phenylephrine 2.5% OPTH.SOL* 2 ML BTL ONE (10:11)
[2018-03-31] MEDS ORDERED: Ketorolac 0.5% OPHTH (NF) 0.5 % 5 ML BTL ONE (10:11)
[2018-03-31] MEDS ORDERED: Neomycin/Polymy/Dex OPTH.SUSP* MAXITROL 0.1% 5 ML ONE (10:11)
[2018-03-31] MEDS ORDERED: Proparacaine 0.5% OPHTH.SOL* 15 ML BTL ONE (10:11)
[2018-03-31] MEDS ORDERED: Lidocaine 2% EPI 1:200000 MPF*10-20 ML VIAL ONE (10:11)
[2018-03-31] MEDS ORDERED: Cyclopentolate 1% OPTH.SOL* 2 ML BTL ONE (10:11)
[2018-03-31 11:09] VITALS: BP 154/56
--- NOTE | 2018-04-01 00:54 | OP ---
DATE OF OPERATION: 03/31/18 - [facility] DATE OF : 33 SURGEON: Frandy Pack M.D. PREOPERATIVE DIAGNOSIS: Cataract, left eye. POSTOPERATIVE DIAGNOSIS: Cataract, left eye. OPERATIVE PROCEDURE: Extracapsular cataract extraction with intraocular lens implant left eye and CTR. DESCRIPTION OF PROCEDURE: The patient was brought to the operating room after being given 1/2% Alcaine with epinephrine drops in the preoperative area. The eye was prepped and draped in the usual sterile fashion. Sterile drape and eyelid speculum were placed. Again, topical 1/2% Alcaine with epinephrine was given. A paracentesis incision was made at the 3 o'clock position with the No.75 blade. Clear cornea incision 2.2 x 2.2-mm was created at the 6 o'clock position starting at the anterior limbus using the 2.2-mm keratome. The anterior chamber was irrigated with 0.4 mL of 1% non-preservative intracameral lidocaine and filled with DisCoVisc. A capsulorrhexis was completed using the cystotome and the Utrata forceps. Hydrodissection was performed with balanced salt solution. The lens nucleus was removed with the Phacoemulsification handpiece without incident. Cortex was removed with the irrigation-aspiration handpiece. The capsular bag was re-inflated using DisCoVisc and an [id number] 23.5 implant was inserted with the shooter followed by CTR. A CTR 10 inserted with its shooter. The irrigation-aspiration handpiece was used to remove all residual DisCoVisc. The eye was refilled with balanced salt solution and the wound checked and found to be watertight. Topical Maxitrol drops were given. Indication for complex cataract surgery, pseudoexfoliation requiring capsular tension ring device. [id number]/[facility] #: [id number] [facility]
== END 2018-03-31 13:19 | disposition home or self-care (01) ==
LOC: OREAST 07:56
PROVIDERS: ATTEND Specialist
DX: H25.812 Combined forms of age-related cataract, left eye (principal); H40.1434 Capsular glaucoma with pseudoexfoliation of lens, bilateral, indeterminate stage; Z79.84 Long term (current) use of oral hypoglycemic drugs; E11.3293 Type 2 diabetes mellitus with mild nonproliferative diabetic retinopathy without macular edema, bilateral; I10 Essential (primary) hypertension; I48.91 Unspecified atrial fibrillation; K21.9 Gastro-esophageal reflux disease without esophagitis; E03.9 Hypothyroidism, unspecified; M19.90 Unspecified osteoarthritis, unspecified site; Z79.01 Long term (current) use of anticoagulants; D64.9 Anemia, unspecified; J44.9 Chronic obstructive pulmonary disease, unspecified; Z79.899 Other long term (current) drug therapy
CPT/HCPCS: A9270-GY; J2250; J3010; V2632

== ENCOUNTER 2018-04-12 12:17 | Emergency (ER) | payer MEDICARE, BC ==
--- OUTSIDE RECORDS SUMMARY | 2018-04-12 12:48 | XMS REPORT ---
:1935 External Reference #:[id number] Author Organization [facility] Address [address] [place] [address] Phone [phone] Care Team Providers Name Role Phone Taisha Khan M.D. Primary Care Physician Unavailable Payers Type Date Identification Numbers Payment Provider Subscriber Medicare Primary Policy Number: [id number] Medicare - NGS Cheyanne Najera PayID: [id number] [address] [place] [address] Commercial Policy Number: [id number] [place] Plan Cheyanne Najera PayID: [id number] [address] [place] [address] Problems Date Description Provider Status Onset: Chronic sinusitis Active Onset: Asthma Active Onset: Pure hypercholesterolemia Active Onset: Essential hypertension Active Onset: Chronic urinary tract infection Active Onset: Chronic infective cystitis Active Onset: Hypothyroidism Active Onset: Eczema Active Onset: Type 2 diabetes mellitus Active Note: 2004 Onset: 10/06/2016 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 Active Onset: 07/23/2015 Open angle with borderline findings Frandy Pack M.D. Active Onset: 07/23/2015 Type 2 diab w mild nonprlf diabetic Frandy J. Arleo, M.D. Active rtnop w/o macular edema Onset: 07/23/2015 Combined form of senile cataract Frandy Pack M.D. Active Family History Date Family Member(s) Problem(s) Comments Father No Current Problems Mother No Current Problems Social History Type Date Description Comments Marital Status Legal Status: Occupation [employer] Work Status Retired ETOH Use Denies alcohol use Smoking Patient has never smoked Recreational Drug Use Denies Drug Use Daily Caffeine Consumes on average 1 cup of hot tea per day Allergies, Adverse Reactions, Alerts Date Description Reaction Status Severity Comments 04/28/2015 Amoxicillin active 07/23/2015 Sulfa Antibiotics active Medications Medication Date Status Form Strength Qnty SIG Indications Ordering Provider Brimonidine 03/19/ Active Solution 0.15% 45ml 1 drop Frandy De Guzman 2018 both eyes Arleo, twice a M.D. day Vesicare / Active Tablets 10mg Hussieni, 0000 Trip M.D. Amlodipine / Active Tablets 5mg Galyanova, Besylate 0000 Taisha Guadarrama.DElias Levothyroxine / Active Tablets 25mcg Galyanova, Sodium 0000 Taisha M.DElias Glipizide XL / Active Tablets ER 2.5mg Galyanova, 0000 24HR Taisha Villanueva Omeprazole / Active Capsules DR 20mg Evaova, 0000 Taisha M.D. Atorvastatin / Active Tablets 10mg Galyanova, Calcium 0000 Taisha M.D. Advair Diskus / Active Aerosol 500-50mcg Galyanova, 0000 /Dose Taisha M.DElias Fluticasone / Active Suspension 50mcg/Act Unknown Propionate 0000 Zafirlukast / Active Tablets 20mg Galyanova, 0000 Taisha M.D. Accu-Chek Sabra / Active Strips Unknown Plus 0000 Metformin HCL / Active Tablets 1000mg Galyanova, 0000 Taisha M.D. Losartan / Active Tablets 100mg Galyanova, Potassium 0000 Taisha M.D. Tramadol HCL / Active Tablets 50mg Galyanova, 0000 Taisha M.D. Augmented / Active Ointment 0.05% Galyanova, Betamethasone 0000 Taisha Dipropionate M.D. Multi Vitamin 00/00/ Active Tablets Unknown Daily 0000 Benzonatate 00/ Active Capsules 100mg Galyanova, 0000 Taisha M.D. Furosemide 00/00/ Active Tablets 20mg Unknown 0000 Eliquis 0000/ Active Tablets 5mg take 1 Unknown 0000 tablet by mouth twice a day Azithromycin 00/00/ Active Tablets 250mg take 1 Unknown 0000 tablet by mouth once daily Ciprofloxacin 08/17/ Hx Solution 0.3% 10ml instill Frandy J. HCL 2017 - one drop Arleo, 01/07/ in the M.D. 2018 left eye three times a day, start the day before surgery Ketorolac 08/17/ Hx Solution 0.5% 10ml use one Frandy J. Tromethamine 2017 - drop in Arleo, 01/07/ the left M.D. 2018 eye three times a day, start the day before surgery Prednisolone 08/17/ Hx Suspension 1% 15ml 1 drops Frandy J. Acetate 2016 - left eye Arleo, 01/07/ three M.D. 2018 times a day. taper as directed Triamcinolone / Hx Ointment 0.1% Unknown Acetonide 0000 - 2016 Levofloxacin 00/ Hx Tablets 500mg take 1 Unknown 0000 - tablet by mouth 2015 once daily AT 7Am On An Empty Stomach Ciprofloxacin /00/ Hx Tablets 250mg Hussieni, HCL 0000 - Trip M.D. 2015 Mometasone / Hx Cream 0.1% Apply To Unknown Furoate 0000 - Affected 2016 Twice Daily Ventolin HFA /00/ Hx Aerosol 108(90Bas Galyanova, 0000 - e) Taisha 08/14/ mcg/Act M.D. 2017 Levofloxacin 00/00/ Hx Tablets 500mg take 1 Unknown 0000 - tablet by 08/14/ mouth 2016 once daily for 10 days Results Description No Information Procedures Date CPT Code Description Status 08/17/2017 17022 Ophthalmic Biometry Completed 08/17/2017 42831 Ophthalmic Biometry Completed 08/17/2017 42213 Scanning Computerized Opthalmic Diagnostic Posterior Completed Seg Retina 08/17/2017 30885 Computerized Corneal Topography Completed 04/06/2017 66385 Est Patient Intermediate Exam Completed 10/06/2016 82472 Scanning Computerized Opthalmic Diagnostic Posterior Completed Seg Retina 10/06/2016 82684 Est Patient Comprehensive Exam Completed 07/23/2015 14864 Scanning Computerized Opthalmic Diagnostic Posterior Completed Seg Retina 07/23/2015 74047 Est Patient Comprehensive Exam Completed 05/09/2014 38408 Fundus Photography With Interpretation And Report Completed 05/09/2014 56741 Est Patient Comprehensive Exam Completed 04/18/2013 94135 Scanning Computerized Opthalmic Diagnostic Posterior Completed Seg Retina 04/18/2013 52447 Est Patient Comprehensive Exam Completed 04/12/2012 48684 Est Patient Comprehensive Exam Completed 04/12/2012 79024 Determination Of Refractive State Completed 04/12/2012 58358 Scanning Computerized Opthalmic Diagnostic Posterior Completed Seg Retina 04/07/2011 38284 Scanning Computerized Opthalmic Diagnostic Posterior Completed Seg Retina 04/07/2011 27585 Determination Of Refractive State Completed 04/07/2011 45851 Est Patient Comprehensive Exam Completed 10/08/2009 50374 Fundus Photography With Interpretation And Report Completed 10/08/2009 96975 Determination Of Refractive State Completed 10/08/2009 06607 Est Patient Comprehensive Exam Completed 09/11/2008 20815 Fundus Photography With Interpretation And Report Completed 09/11/2008 07248 Determination Of Refractive State Completed 09/11/2008 16262 Est Patient Comprehensive Exam Completed 01/23/2005 56940 Determination Of Refractive State Completed 01/23/2005 03630 Est Patient Comprehensive Exam Completed 12/29/2003 06017 Determination Of Refractive State Completed 12/29/2003 23972 New Patient Comprehensive Exam Completed Encounters Type Date Location Provider CPT E/M Dx Office Visit 01/08/2018 Frandy Pack MD, Frandy Pack, [address] H25.811 11:00a leobardo Villanueva E11.3293 H25.812 H40.1434 Office Visit 08/17/2017 11:00a Frandy Pack MD, Frandy Pack, [address] H25.812 leobardo Villanueva H25.811 E11.3293 H40.1434 Plan of Care Future Appointment(s):04/15/2018 10:15 am - Natalie Eagle O.D. at Frandy Pack [facility], 04/01/2018 10:45 am - Gurwinder Brandt M.D. at Frandy Pack [facility], 03/25/2018 1:30 pm - Frandy Pack M.D. at [facility], 03/31 7:00 am - Frandy Pack M.D. at Frandy [facility], 03/24/2018 7: 00 am - Frandy Pack M.D. at Frandy [facility], 03/19/2018 - Frandy Pack M.D.H25.811 Combined forms of age-related cataract, right eyeComments: Smoking can increase the risk of developing or worsening any eye related disease , as well as affect your overall health. If you are a smoker, we strongly recommend that you quit.If you are not a smoker, we strongly recommend that you do not start. Dense cataract in the right eye. USE THE BRIMONIDINE TWICE A DAY IN YOUR RIGHT EYE STARTING WHEN YOU GET HOME FROM SURGERY AND USE UNTIL YOU STOP THE CIPRO ON up:For surgery. Please keep post op appointments as scheduled.E11.3293 Type 2 diab with mild nonp rtnop without macular edema, biH25.812 Combined forms of age-related cataract, left eyeH40.1434 Capslr glaucoma w/pseudxf lens, bi, indeterminate stage
--- OUTSIDE RECORDS SUMMARY | 2018-04-12 12:48 | XMS REPORT ---
:1935 External Reference #:[id number] Author Organization [facility] Address [address] [place] [address] Phone [phone] Care Team Providers Name Role Phone Taisha Khan M.D. Primary Care Physician Unavailable Payers Type Date Identification Numbers Payment Provider Subscriber Medicare Primary Policy Number: [id number] Medicare - NGS Cheyanne Najera PayID: [id number] [address] [place] [address] Commercial Policy Number: [id number] [place] Plan Cheyanne Najera PayID: [id number] [address] [place] [address] Problems Date Description Provider Status Onset: Chronic sinusitis Active Onset: Asthma Active Onset: Pure hypercholesterolemia Active Onset: Essential hypertension Active Onset: Chronic urinary tract infection Active Onset: Chronic infective cystitis Active Onset: Hypothyroidism Active Onset: Eczema Active Onset: Type 2 diabetes mellitus Active Note: 2005 Onset: 03/25/2018 Presence of intraocular lens Frandy Pack M.D. 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 Active Onset: 07/23/2015 Open angle with borderline findings Frandy Pack M.D. Active Onset: 07/23/2015 Type 2 diab w mild nonprlf diabetic Frandy Pack M.D. Active rtnop w/o macular edema Onset: 07/23/2015 Combined form of senile cataract Frandy Pack M.D. Active Family History Date Family Member(s) Problem(s) Comments Father No Current Problems Mother No Current Problems Social History Type Date Description Comments Marital Status Legal Status: Occupation [employer] Work Status Retired ETOH Use Denies alcohol use Smoking Patient has never smoked Recreational Drug Use Denies Drug Use Daily Caffeine Consumes on average 1 cup of hot tea per day Allergies, Adverse Reactions, Alerts Date Description Reaction Status Severity Comments 04/28/2015 Amoxicillin active 07/23/2015 Sulfa Antibiotics active Medications Medication Date Status Form Strength Qnty SIG Indications Ordering Provider Ciprofloxacin 03/24/ Active Solution 0.3% 10uni instill Frandy Jeong HCL 2018 ts one drop Arleo, in the M.D. right eye three times a day, start the day before surgery Ketorolac 03/24/ Active Solution 0.5% 10ml use one Frandy Jeong Tromethamine 2018 drop in Arleo, the right M.D. eye three times a day, start the day before surgery Prednisolone 03/24/ Active Suspension 1% 15ml 1 drops Frandy Jeong Acetate 2018 right eye Arleo, three M.D. times a day. taper as directed Brimonidine 03/19/ Active Solution 0.15% 45ml 1 drop Frandy Jeong Tartrate 2018 both eyes Arleo, twice a M.D. day Vesicare / Active Tablets 10mg Hussieni, 0000 Trip M.D. Amlodipine / Active Tablets 5mg Galyanova, Besylate 0000 Taisha M.D. Levothyroxine / Active Tablets 25mcg Galyanova, Sodium 0000 Taisha M.D. Glipizide XL / Active Tablets ER 2.5mg Galyanova, 0000 24HR Taisha M.D. Omeprazole / Active Capsules DR 20mg Galyanova, 0000 Taisha M.D. Atorvastatin / Active Tablets 10mg Galyanova, Calcium 0000 Taisha M.D. Advair Diskus / Active Aerosol 500-50mcg Galyanova, 0000 /Dose Taisha M.D. Fluticasone / Active Suspension 50mcg/Act Unknown Propionate 0000 Zafirlukast / Active Tablets 20mg Galyanova, 0000 Taisha M.D. Accu-Chek Sabra / Active Strips Unknown Plus 0000 Metformin HCL / Active Tablets 1000mg Galyanova, 0000 Taisha M.D. Losartan / Active Tablets 100mg Galyanova, Potassium 0000 Taisha M.D. Tramadol HCL / Active Tablets 50mg Galyanova, 0000 Taisha M.D. Augmented / Active Ointment 0.05% Galmyron, Betamethasone 0000 Taisha Dipropionate M.D. Multi Vitamin / Active Tablets Unknown Daily 0000 Benzonatate / Active Capsules 100mg Galyanova, 0000 Taisha M.D. Furosemide / Active Tablets 20mg Unknown 0000 Eliquis / Active Tablets 5mg take 1 Unknown 0000 tablet by mouth twice a day Azithromycin / Active Tablets 250mg take 1 Unknown 0000 tablet by mouth once daily Ciprofloxacin 08/17/ Hx Solution 0.3% 10ml instill Frandy J. HCL 2017 - one drop [facility], 01/07/ in the M.D. 2018 left eye three times a day, start the day before surgery Ketorolac 08/17/ Hx Solution 0.5% 10ml use one Frandy J. Tromethamine 2017 - drop in [facility], 01/07/ the left M.D. 2018 eye three times a day, start the day before surgery Prednisolone 08/17/ Hx Suspension 1% 15ml 1 drops Frandy J. Acetate 2017 - left eye [facility], 01/07/ three M.D. 2018 times a day. taper as directed Triamcinolone / Hx Ointment 0.1% Unknown Acetonide 0000 - 2016 Levofloxacin / Hx Tablets 500mg take 1 Unknown 0000 - tablet by mouth 2015 once daily AT 7Am On An Empty Stomach Ciprofloxacin / Hx Tablets 250mg Hussieni, HCL 0000 - Trip M.D. 2015 Mometasone / Hx Cream 0.1% Apply To Unknown Furoate 0000 - Affected Area 2016 Twice Daily Ventolin HFA / Hx Aerosol 108(90Bas Galyanmandy, 0000 - e) Taisha 08/14/ mcg/Act M.DElias 2017 Levofloxacin / Hx Tablets 500mg take 1 Unknown 0000 - tablet by mouth 2016 once daily for 10 days Results Description No Information Procedures Date CPT Code Description Status 03/24/2018 73015 Cataract Surgery Complex Completed 03/19/2018 98347 Ophthalmic Biometry Completed 03/19/2018 74258 Ophthalmic Biometry Completed 08/17/2017 64958 Ophthalmic Biometry Completed 08/17/2017 62257 Ophthalmic Biometry Completed 08/17/2017 18692 Scanning Computerized Opthalmic Diagnostic Posterior Completed Seg Retina 08/17/2017 04969 Computerized Corneal Topography Completed 04/06/2017 69528 Est Patient Intermediate Exam Completed 10/06/2016 99498 Est Patient Comprehensive Exam Completed 10/06/2016 31787 Scanning Computerized Opthalmic Diagnostic Posterior Completed Seg Retina 07/23/2015 38457 Scanning Computerized Opthalmic Diagnostic Posterior Completed Seg Retina 07/23/2015 70677 Est Patient Comprehensive Exam Completed 05/09/2014 08994 Fundus Photography With Interpretation And Report Completed 05/09/2014 23769 Est Patient Comprehensive Exam Completed 04/18/2013 80860 Scanning Computerized Opthalmic Diagnostic Posterior Completed Seg Retina 04/18/2013 79012 Est Patient Comprehensive Exam Completed 04/12/2012 82208 Est Patient Comprehensive Exam Completed 04/12/2012 78852 Determination Of Refractive State Completed 04/12/2012 21938 Scanning Computerized Opthalmic Diagnostic Posterior Completed Seg Retina 04/07/2011 10557 Scanning Computerized Opthalmic Diagnostic Posterior Completed Seg Retina 04/07/2011 10292 Determination Of Refractive State Completed 04/07/2011 51149 Est Patient Comprehensive Exam Completed 10/08/2009 31160 Fundus Photography With Interpretation And Report Completed 10/08/2009 49182 Determination Of Refractive State Completed 10/08/2009 79643 Est Patient Comprehensive Exam Completed 09/11/2008 48707 Fundus Photography With Interpretation And Report Completed 09/11/2008 41617 Determination Of Refractive State Completed 09/11/2008 79393 Est Patient Comprehensive Exam Completed 01/23/2005 85237 Determination Of Refractive State Completed 01/23/2005 61910 Est Patient Comprehensive Exam Completed 12/29/2003 92082 Determination Of Refractive State Completed 12/29/2003 85915 New Patient Comprehensive Exam Completed Encounters Type Date Location Provider CPT E/M Dx Office Visit 03/19/2018 Frandy Pack MD, Fr[place], [address] H25.811 9:30a pc M.D. E11.3293 H25.812 H40.1434 Office Visit 01/08/2018 11:00a Frandy Pack MD, Frandy Pack, [address] H25.811 pc M.D. E11.3293 H25.812 H40.1434 Office Visit 08/17/2017 11:00a Frandy Pack MD, Fr[place] Pack, [address] H25.812 pc M.D. H25.811 E11.3293 H40.1434 Plan of Care Future Appointment(s):04/15/2018 10:15 am - Natalie Eagle O.D. at Frandy Pack [facility], 04/01/2018 10:45 am - Gurwinder Brandt M.D. at Frandy Pack [facility], 03/31/2018 7:00 am - Frandy Pack M.D. at Frandy Pack [facility], 03/25 - Frandy Pack M.D.H25.812 Combined forms of age-related cataract, left eyeComments:Smoking can increase the risk of developing or worsening any eye related disease, as well as affect your overall health. If you are a smoker , we strongly recommend that you quit.If you are not a smoker, we strongly recommend that you do not start. Dense cataract in the left eye.Follow up:For surgery. Please keep post op appointments as scheduled.Z96.1 Presence of intraocular lensComments:The artifical lens implant in your right eye appears to be stable. Since this is the first day after surgery, your right eye is still dilated and the vision will still be slightly blurry. The dilation will go down over the next day or two. Continue taking your eye drops as directed on the surgical calendar. 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
[2018-04-12 13:12] LABS: ABS Basophils 0.1 10^3/ul (0-0.2); ABS Eosinophils 0.5 10^3/ul (0-0.6); ABS Lymphocytes 1.8 10^3/ul (1.0-4.8); ABS Monocytes 0.7 10^3/ul (0-0.8); ABS Nucleated RBC 0 10^3/ul; Eosinophil % 6.4 % (0-6); Hematocrit 33 % (35-47); Hemoglobin 10.9 g/dl (12.0-16.0); Lymphocyte % 21.9 % (25-47); Mean Corpuscular HGB Conc 33 g/dl (31-36); Mean Corpuscular Hemoglobin 27 pg (27-31); Mean Corpuscular Volume 81 fL (80-97); Mean Platelet Volume 7.6 um3 (7.4-10.4); Nucleated Red Blood Cells % 0.1; Platelet Count 299 10^3/ul (150-450); Red Blood Count 4.04 10^6/ul (4.00-5.40); Red Cell Distribution Width 18 % (10.5-15); White Blood Count 8.1 10^3/ul (3.5-10.8)
[2018-04-12 13:28] LABS: INR 1.29 (0.77-1.02)
--- NOTE | 2018-04-12 13:33 | ED ---
Head Injury - HPI Summary HPI Summary: 82-year-old female presents with head injury last week. She states that she believes she tripped and fell on her face. She is on eliquis. She denies loss conscious. No nausea and vomiting. She was not evaluated at that time. She states that over the past couple of days she's had increased bruising in her face. She denies any pain. No change in vision. No dizziness. no headache. fall was mechanical fall. She denies any chest pain or shortness breath time. She states she does not take her eliquis today. She is on eliquis for a fib. She denies any other injury. - History Of Current Complaint Chief Complaint: EDFacialInjury Stated Complaint: FACIAL INJURY Time Seen by Provider: 04/12/18 12:30 Pain Intensity: 0 - Allergies/Home Medications Allergies/Adverse Reactions: Allergies Allergy/AdvReac Type Severity Reaction Status Date / Time amoxicillin Allergy Severe Rash And Verified 03/31/18 08:44 Itching doxycycline Allergy Severe Rash And Verified 03/31/18 08:44 Itching latex Allergy Severe itch Verified 03/31/18 08:44 Sulfa (Sulfonamide Allergy Severe Rash And Verified 03/31/18 08:44 Antibiotics) Itching PMH/Surg Hx/FS Hx/Imm Hx Endocrine/Hematology History: Reports: Hx Anticoagulant Therapy - Heparin at hospital, Hx Diabetes - type 2, Hx Thyroid Disease - hypothyroid, Hx Anemia - chronic anemia Denies: Hx Blood Disorders, Hx Blood Transfusions, Hx Systemic Lupus Erythematosus, Hx Sickle Cell Disease, Hx Unexplained Bleeding Cardiovascular History: Reports: Hx Hypercholesterolemia, Hx Hypertension - on meds, Hx Syncope - vertigo, Other Cardiovascular Problems/Disorders - a fib, on elaquis Denies: Hx Aneurysm, Hx Angina, Hx Angioplasty, Hx Auto Implanted Cardiovert Defib, Hx Cardiac Arrest, Hx Cardiomegaly, Hx Congenital Heart Disease, Hx Congestive Heart Failure, Hx Coronary Artery Disease, Hx Deep Vein Thrombosis, Hx Embolism, Hx Hypotension, Hx Pacemaker/ICD, Hx Peripheral Vascular Disease, Hx Rheumatic Fever Respiratory History: Reports: Hx Asthma, Hx Pneumonia, Hx Seasonal Allergies, Other Respiratory Problems/Disorders - pneumonia 20 yrs ago, was on vent, hx of pneumonia at other times as well Denies: Hx Chronic Bronchitis, Hx Chronic Obstructive Pulmonary Disease (COPD ), Hx Cystic Fibrosis, Hx Lung Cancer, Hx Pleural Effusion, Hx Pulmonary Edema, Hx Pulmonary Embolism, Hx Sleep Apnea GI History: Reports: Hx Diverticulosis, Hx Gastroesophageal Reflux Disease Denies: Hx Cirrhosis, Hx Crohn's Disease, Hx Gall Bladder Disease, Hx Gastrointestinal Bleed, Hx Obstructive Bowel, Hx Ileostomy, Hx Ulcer, Other GI Disorders History: Reports: Other Problems/Disorders - Hx persistent bladder infections, on meds Denies: Hx Acute Renal Failure, Hx Chronic Renal Failure, Hx Dialysis, Hx Kidney Infection, Hx Kidney Stones Musculoskeletal History: Reports: Hx Arthritis, Other Musculoskeletal History - RIGHT KNEE GIVES OUT, WEARS A BRACE FOR STABILITY, USES A CANE Denies: Hx Back Problems, Hx Bursitis, Hx Fibromyalgia, Hx Gout, Hx Scoliosis , Hx Tendonitis Sensory History: Reports: Hx Cataracts - both eyes, Hx Contacts or Glasses - glasses, Hx Glaucoma - mild, Hx Hearing Aid - needs new ones Denies: Hx Eye Injury, Hx Eye Prosthesis, Hx Legally Blind, Hx Macular Degeneration, Hx Deafness, Hx Hearing Problem Opthamlomology History: Reports: Hx Cataracts - both eyes, Hx Contacts or Glasses - glasses, Hx Glaucoma - mild Denies: Hx Eye Injury, Hx Eye Prosthesis, Hx Legally Blind, Hx Macular Degeneration Neurological History: Denies: Other Neuro Impairments/Disorders Psychiatric History: Denies: Hx Anxiety, Hx Attention Deficit Hyperactivity Disorder, Hx Eating Disorder, Hx Depression, Hx Panic Disorder, Hx Post Traumatic Stress Disorder, Hx Inpatient Treatment, Hx Schizophrenia, Hx Bipolar Disorder, Hx Suicide Attempt, Hx of Violent Episodes Against Others, Hx Substance Abuse - Cancer History Hx Chemotherapy: No - Surgical History Surgery Procedure, Year, and Place: Hysterectomy 1965, appendix removed at same time,. hernia [id number],. sinus surgeries, Hx Anesthesia Reactions: No - Immunization History Immunizations Up to Date: Yes Infectious Disease History: No Infectious Disease History: Denies: Hx Hepatitis, Hx of Known/Suspected MRSA, Hx Tuberculosis, Traveled Outside the [place] in Last 30 Days - Family History Known Family History: Positive: Hypertension - Social History Alcohol Use: None Substance Use Type: Reports: None Smoking Status (MU): Never Smoked Tobacco Review of Systems Negative: Fever Negative: Chest Pain Negative: Vomiting Positive: Bruising Negative: Headache All Other Systems Reviewed And Are Negative: Yes Physical Exam Triage Information Reviewed: Yes Vital Signs On Initial Exam: Initial Vitals Temp Pulse Resp BP Pulse Ox 97.4 F 81 16 129/67 98 04/12/18 12:20 04/12/18 12:20 04/12/18 12:20 04/12/18 12:20 04/12/18 12:20 Vital Signs Reviewed: Yes Appearance: Positive: Well-Appearing Skin: Positive: Warm, Dry, Other - Ecchymosis noted under bilaterally eyes, left worst right, contusion noted to the left upper forehead Head/Face: Positive: Normal Head/Face Inspection, Other - no step off, racoon eyes, storm sign Eyes: Positive: Normal, EOMI, WILLIAM, Conjunctiva Clear ENT: Positive: Pharynx normal Respiratory/Lung Sounds: Positive: Clear to Auscultation, Breath Sounds Present Cardiovascular: Positive: Normal, RRR Musculoskeletal: Positive: Normal Neurological: Positive: Sensory/Motor Intact, Alert, Oriented to Person Place, Time, CN Intact II-III Psychiatric: Positive: Normal Diagnostics - Vital Signs Vital Signs Temp Pulse Resp BP Pulse Ox 04/12/18 12:20 97.4 F 81 16 129/67 98 - Laboratory Lab Results: Lab Results 04/12/18 04/12/18 Range/Units 12:57 12:57 WBC 8.1 (3.5-10.8) 10^3/ul RBC 4.04 (4.00-5.40) 10^6/ul Hgb 10.9 L (12.0-16.0) g/dl Hct 33 L (35-47) % MCV 81 (80-97) fL MCH 27 (27-31) pg MCHC 33 (31-36) g/dl RDW 18 H (10.5-15) % Plt Count 299 (150-450) 10^3/ul MPV 7.6 (7.4-10.4) um3 Neut % (Auto) 61.8 (38-83) % Lymph % (Auto) 21.9 L (25-47) % Hooker % (Auto) 8.8 H (0-7) % Eos % (Auto) 6.4 H (0-6) % Baso % (Auto) 1.1 (0-2) % Absolute Neuts (auto) 5.0 (1.5-7.7) 10^3/ul Absolute Lymphs (auto) 1.8 (1.0-4.8) 10^3/ul Absolute Monos (auto) 0.7 (0-0.8) 10^3/ul Absolute Eos (auto) 0.5 (0-0.6) 10^3/ul Absolute Basos (auto) 0.1 (0-0.2) 10^3/ul Absolute Nucleated RBC 0 10^3/ul Nucleated RBC % 0.1 INR (Anticoag Therapy) 1.29 H (0.77-1.02) APTT 37.7 H (26.0-36.3) seconds Result Diagrams: 04/12/18 12:57 Lab Statement: Any lab studies that have been ordered have been reviewed, and results considered in the medical decision making process. - CT brain CT Interpretation: No Acute Changes CT Interpretation Completed By: Radiologist maxillaryfacial CT Interpretation: Positive (See Comments) - IMPRESSION: Left frontal scalp hematoma. No fracture of the facial bones is noted. Postoperative changes of the maxillary sinuses is noted bilaterally. CT Interpretation Completed By: Radiologist Head Injury Course/Dx Course Of Treatment: 82-year-old female presents with head injury last week. She states that she believes she tripped and fell on her face. She is on eliquis. She denies loss conscious. No nausea and vomiting. She was not evaluated at that time. She states that over the past couple of days she's had increased bruising in her face. She denies any pain. No change in vision. No dizziness. no headache. fall was mechanical fall. She denies any chest pain or shortness breath time. She states she does not take her eliquis today. She is on eliquis for a fib. She denies any other injury. On exam normal neuro exam. Has ecchymosis noted around the eyes. Has contusion noted to left forehead. labs wbc 10.9. which is better than previous. inr is 1.29 which is also better than previous. CT brain normal. CT maxillaryfacial shows hematoma. discussed with patient states has not had an issues with a fib so will hold eliquis for a day. discussed risk of doing so with patient and patient agrees with hold it. told will take time for brusing to disappear. patient understand and agrees with plan. - Diagnoses Differential Diagnosis/HQI/PQRI: Concussion Without LOC, Contusion, Intracranial Bleed Provider Diagnoses: Traumatic ecchymosis of face Discharge - Sign-Out/Discharge Documenting (check all that apply): Patient Departure - Discharge Plan Condition: Good Disposition: HOME Patient Education Materials: Facial Contusion (ED) Referrals: Taisha Khan MD [Primary Care Provider] - Additional Instructions: Place ice on area as needed Take Tylenol every 6 hours as needed hold eliquis for 1 day Follow up with primary within 5 days Return to ED if develop any new or worsening symptoms - Billing Disposition and Condition Condition: GOOD Disposition: Home
--- NOTE | 2018-04-12 13:53 | RAD ---
Indication: Fall, patient on anticoagulants CT of the brain was performed without IV contrast. No prior study is available for comparison. Ventricular structures are midline. No midline shift is noted. Central and cortical atrophy is noted. Periventricular lucency consistent with chronic ischemic White matter change is noted. There is no evidence of intracranial mass or hemorrhage. No other high or low density lesions are identified. IMPRESSION: Age-appropriate atrophy with chronic ischemic White matter change. No intracranial mass or hemorrhage is noted.
--- NOTE | 2018-04-12 13:55 | RAD ---
Indication: Facial injury after fall. CT of the facial bones was obtained in the axial plane. Sagittal and coronal reconstructed images were obtained. Scalp hematoma is noted over the left frontal area. No underlying fracture is noted. The frontal sinuses are hypoplastic. Nasal arch is intact. Patient has had medial antrectomies bilaterally. The orbits are intact without fracture. No evidence of intraconal or extraconal masses are noted. Nasal arch and nasal spine are intact. No evidence of fracture of the maxillary sinuses are noted in both fluid is noted in the maxillary sinuses bilaterally which May represent sinusitis. Zygomatic arch is intact without fracture. The maxilla including the pterygoid plates are intact. No fracture is noted. The mandible demonstrates no fracture. Degenerative changes of the temporomandibular joints are noted bilaterally. The visualized cervical spine is otherwise unremarkable. IMPRESSION: Left frontal scalp hematoma. No fracture of the facial bones is noted. Postoperative changes of the maxillary sinuses is noted bilaterally.
[2018-04-12 15:09] VITALS: BP 135/73
== END 2018-04-12 14:15 | disposition home or self-care (01) ==
LOC: ED 12:17
DX: S00.83XA Contusion of other part of head, initial encounter (principal); W01.0XXA Fall on same level from slipping, tripping and stumbling without subsequent striking against object, initial encounter; Y92.9 Unspecified place or not applicable; G31.1 Senile degeneration of brain, not elsewhere classified; I48.91 Unspecified atrial fibrillation; I10 Essential (primary) hypertension; Z79.01 Long term (current) use of anticoagulants; Z88.3 Allergy status to other anti-infective agents; Z88.2 Allergy status to sulfonamides
CPT/HCPCS: 36415; 70450; 70486; 85025; 85610; 85730; 99282